=== PATIENT | male | born 1965 | race Caucasian/White ===

== ENCOUNTER 2018-12-04 23:11 | Emergency (ER) | payer OTHER ==
[~2018-12-04] VITALS: Ht 175.3 cm; Wt 91.6 kg
[2018-12-04 23:35] VITALS: BP_SYST 153
--- NOTE | 2018-12-05 00:32 | NUR ---
Pt ambulatory to bed 1 for evaluation
[2018-12-05] MEDS ORDERED: LevALBUTEROL HCL 1.25 MG/0.5 ML *CONC.* VIAL.NEB (XOPENEX CONC.) INH ONE (00:45)
[2018-12-05] MEDS ORDERED: PREDNISONE 20 MG TABLET PO ONE (00:45)
[2018-12-05] MEDS ORDERED: AMOXICILLIN 500 MG CAPSULE PO ONE (00:45)
--- NOTE | 2018-12-05 00:45 | NUR ---
ER at bedside examining patient.
--- NOTE | 2018-12-05 00:50 | NUR ---
Pt came to the ED for 4-5 day history of acute, non-productive cough. Pt states that he feels chest pain when he coughs. Pt has been taking dayquil with some improvement. Denies daily medications. Denies allergies. Denies n/v/d or fever. No other complaints/injuries noted. Will cont. to monitor.
--- NOTE | 2018-12-05 00:50 | NUR ---
Note undone in EDM - 12/05/18 at 0428 by [email or web address] Pt came to the ED for 4-5 day history of acute, non-productive cough. Pt states that he feels chest painw hen he coughs. Pt has been taking dayquil with some improvement. Denies daily medications. Denies allergies. Denies n/v/d or fever. No other complaints/injuries noted. Will cont. to monitor.
--- NOTE | 2018-12-05 00:57 | NUR ---
PT MEDICATED WITH PREDISONE PO AND AMOXICILLIN PO PER MD ORDER. TOLERATED WELL. WILL CONT. TO MONITOR.
[2018-12-05 01:34] VITALS: BP_SYST 153
--- NOTE | 2018-12-05 01:34 | NUR ---
Patient given written and verbal discharge instructions and verbalizes understanding. ER MD Dr. Bae discussed with patient the results and treatment provided. Patient in stable condition. ID arm band removed. Rx of predisone, albuterol, amoxicillin, tessalon given. Patient educated on pain management and to follow up with PMD within 2-3 days. Pain Scale 0/10. Opportunity for questions provided and answered. Medication side effect fact sheet provided.
== END 2018-12-05 01:31 | disposition home or self-care (01) ==
LOC: SED 23:11
DX: J40 Bronchitis, not specified as acute or chronic (principal); R03.0 Elevated blood-pressure reading, without diagnosis of hypertension
CPT/HCPCS: 94664; 99285; J7512; J7612; 99283